=== PATIENT | male | born 1995 | race Caucasian/White ===

== ENCOUNTER 2016-08-01 | Emergency (ER) | payer BC, MEDICAID | END 2016-08-01 16:50 | disposition home or self-care (01) ==

== ENCOUNTER 2016-11-24 12:09 | Emergency (ER) | payer BC, MEDICAID ==
[2016-11-24 12:50] LABS: BILIRUBIN,URINE NEGATIVE (NEGATIVE); UA w/ MICROSCOPIC CHARGE YES
[2016-11-24 13:06] LABS: BASOPHILS # (AUTO) 0.1 10^3/uL (0.0-0.1); BASOPHILS % (AUTO) 0.9 %; EOSINOPHILS # (AUTO) 0.2 10^3/uL (0.0-0.7); EOSINOPHILS % (AUTO) 2.1 %; HCT - HEMATOCRIT 39.7 % (42.0-52.0); HGB - HEMOGLOBIN 13.7 g/dL (14.0-18.0); LYMPHOCYTES # (AUTO) 3.4 10^3/uL (1.5-3.5); LYMPHOCYTES % (AUTO) 36.9 %; MEAN CORPUSCULAR HEMOGLOBIN 30.9 pg (27.0-31.0); MEAN CORPUSCULAR HGB CONC 34.5 g/dL (32.0-36.0); MEAN CORPUSCULAR VOLUME 89.8 fL (80.0-94.0); MEAN PLATELET VOLUME 8.8 fL (7.4-11.4); MONOCYTES # (AUTO) 1.2 10^3/uL (0.0-1.0); NEUTROPHILS # (AUTO) 4.3 10^3/uL (1.5-6.6); NEUTROPHILS % (AUTO) 47.1 %; RED BLOOD COUNT 4.42 10^6/uL (4.70-6.10); RED CELL DISTRIBUTION WIDTH 12.8 % (12.0-15.0); UNCORRECTED WHITE BLOOD COUNT 9.2 x10^3/uL; WHITE BLOOD COUNT 9.2 x10^3/uL (4.8-10.8)
[2016-11-24 13:09] LABS: WBC,URINE 0-3 /HPF (0-3)
[2016-11-24 13:10] LABS: UR CULTURE IF IND NOT INDICATED
[2016-11-24 13:22] LABS: ALBUMIN/GLOBULIN RATIO 1.8 (1.0-2.2); BILIRUBIN,TOTAL 1.5 mg/dL (0.2-1.0); BUN - BLOOD UREA NITROGEN 26 mg/dL (6-20); CARBON DIOXIDE - CO2 22 mmol/L (21-32); CHLORIDE 101 mmol/L (101-111); CREATININE 0.9 mg/dL (0.6-1.2); GFR - MDRD 107 (>89); GLUCOSE 76 mg/dL (70-100); LIPASE 17 U/L (22-51); POTASSIUM 4.1 mmol/L (3.5-5.0); SALICYLATE < 6.0 mg/dL; SODIUM 137 mmol/L (135-145); TOTAL PROTEIN 7.8 g/dL (6.7-8.2)
[2016-11-24 13:33] LABS: ACETAMINOPHEN < 10 ug/mL (10-30)
--- NOTE | 2016-11-24 14:00 | ED Physician Documentation ---
PD HPI MHE - Stated complaint Stated Complaint: LT WRIST LAC - Chief complaint Chief Complaint: Laceration - History obtained from History obtained from: Patient, Friend - History of Present Illness Primary symptom: Suicidal ideation, Self harm - cut Timing - onset: Today Pain level max: 3 Pain level now: 1 Contributing factors: Substance abuse - drugs Recently seen: Not recently seen - Additional information Additional information: Patient is a 21 yo M with a history of Hep C who has been using meth for the past several days. States felt suicidal today and cut his L wrist. States history of bipolar, but has not been taking his medications. Patient currently denies feeling suicidal. He states that this was a dumb decision. He states that he is interested in going to rehab. Review of Systems Constitutional: denies: Fever Musculoskeletal: denies: Neck pain, Back pain Neurologic: denies: Focal weakness, Numbness Psychiatric: denies: Homicidal, Hallucinations, Delusions, Anxiety PD PAST MEDICAL HISTORY - Past Medical History Past Medical History: Yes Endocrine/Autoimmune: None Psych: Depression, Bipolar disorder, ADD/ADHD - Past Surgical History Past Surgical History: Yes Ortho: ACL reconstruction - Present Medications Home Medications: Ambulatory Orders Medication Instructions Recorded Confirmed Quetiapine Fumarate [Seroquel] 100 mg ORAL DAILY 09/13/14 08/01/16 Gabapentin 600 mg PO TID 08/01/16 08/01/16 [place] 900 mg PO DAILY 08/01/16 08/01/16 - Allergies Allergies/Adverse Reactions: Allergies Allergy/AdvReac Type Severity Reaction Status Date / Time ssri inhibitors AdvReac Unknown Uncoded 09/13/14 16:09 - Social History Does the pt smoke?: Yes Smoking Status: Current every day smoker Does the pt drink ETOH?: No Does the pt have substance abuse?: Yes Substance Use and Type: Meth - Immunizations Immunizations are current?: No Immunizations: TDAP >10years/unknown PD ED PE NORMAL - Vitals Vital signs reviewed: Yes - General General: Alert and oriented X 3, No acute distress - HEENT HEENT: Moist mucous membranes - Neck Neck: Supple, no meningeal sign - Cardiac Cardiac: RRR - Respiratory Respiratory: No respiratory distress, Clear bilaterally - Abdomen Abdomen: Soft, Non tender, Non distended - Derm Derm: Warm and dry - Extremities Extremities: Other (Volar aspect of the left wrist has a 3 cm, linear laceration that is subcutaneous. Neurovascularly intact. Patient is right- handed.No active bleeding.) - Neuro Neuro: Alert and oriented X 3 - Psych Psych: Normal mood, Normal affect Results - Vitals Vitals: Oxygen O2 Source Room air - Labs Labs: Laboratory Tests 11/24/16 11/24/16 11/24/16 12:39 12:58 12:58 WBC 9.2 RBC 4.42 L Hgb 13.7 L Hct 39.7 L MCV 89.8 MCH 30.9 MCHC 34.5 RDW 12.8 Plt Count 287 MPV 8.8 Neut # 4.3 Lymph # 3.4 [place] # 1.2 H Eos # 0.2 Baso # 0.1 Absolute Nucleated RBC 0.00 Nucleated RBCs 0.0 Sodium 137 Potassium 4.1 Chloride 101 Carbon Dioxide 22 Anion Gap 14.0 H BUN 26 H Creatinine 0.9 Estimated GFR (MDRD) 107 Glucose 76 Calcium 9.0 Total Bilirubin 1.5 H AST 317 H ALT 102 H Alkaline Phosphatase 68 Total Protein 7.8 Albumin 5.0 Globulin 2.8 Albumin/Globulin Ratio 1.8 Lipase 17 L Urine Color YELLOW Urine Clarity CLEAR Urine pH 6.0 Ur Specific [place] >=1.030 H Urine Protein 30 H Urine Glucose (UA) NEGATIVE Urine Ketones 15 H Urine Occult Blood NEGATIVE Urine Nitrite NEGATIVE Urine Bilirubin NEGATIVE Urine Urobilinogen 0.2 (NORMAL) Ur Leukocyte Esterase NEGATIVE Urine RBC 0-5 Urine WBC 0-3 Ur Squamous Epith Cells NONE SEEN Urine Bacteria Rare Urine Mucus Few Strands Ur Microscopic Review INDICATED Urine Culture Comments NOT INDICATED Salicylates < 6.0 Urine Opiates Screen NEGATIVE Ur Oxycodone Screen NEGATIVE Urine Methadone Screen NEGATIVE Ur Propoxyphene Screen NEGATIVE Acetaminophen < 10 L Ur Barbiturates Screen NEGATIVE Ur Tricyclics Screen NEGATIVE Ur Phencyclidine Scrn NEGATIVE Ur Amphetamine Screen POSITIVE H U Methamphetamines Scrn POSITIVE H U Benzodiazepines Scrn POSITIVE H Urine Cocaine Screen NEGATIVE U Cannabinoids Screen POSITIVE H Ethyl Alcohol < 5.0 Procedures - Laceration (location) Left wrist Length in cm: 3 Wound type: Linear, Superficial, Clean Neurovascular status: Sensory intact, Motor intact, Vascular intact Tendon involvement: Tendon intact Wound Preparation: Irrigated copiously NS (250ml), Wound explored, To the base. No: FB identified, FB removed Skin layer closure: Dermabond, Steri strips Other: Patient tolerated well, No complications, Neurovascular intact, Dressing applied, Tetanus UTD Complexity: Simple PD MEDICAL DECISION MAKING - ED course Complexity details: reviewed results, re-evaluated patient, considered differential, d/w patient, d/w family, d/w school plant consultant ED course: Patient is a 21-year-old male who presents to the emergency department after using methamphetamine for the past several days. During his methamphetamine intoxication, he cut his left wrist. This is superficial. Repaired in the emergency department. Tetanus is up-to-date. Patient is right-handed. Patient currently denies any suicidal ideation. We did discuss rehab and social work was consulted for both rehab and mental health evaluation. Mother is comfortable taking him home. They will return if he worsens. Warnings of infection and instructions on wound care given at bedside. Also counseled on how to minimize scarring. Patient and family counseled regarding signs and symptoms for which I believe and urgent re-evaluation would be necessary. Patient with good understanding of and agreement to plan and is comfortable going home at this time This document was made in part using voice recognition software. While efforts are made to proofread this document, sound alike and grammatical errors may occur. Departure - Departure Disposition: 01 Home, Self Care Clinical Impression: Laceration, Depressive disorder, Methamphetamine abuse Condition: Good Instructions: ED Laceration Ext Sutr Stap Tape, ED Drug Abuse General Follow-Up: your,doctor in 3 days for wound check [Other] Comments: Keep the wound clean and dry. You would benefit from rehab for your ongoing drug use issues. Discharge Date/Time: 11/24/16 15:52
[2016-11-24 15:49] VITALS: BP 124/68
== END 2016-11-24 15:52 | disposition home or self-care (01) ==
LOC: ED 12:09
DX: S61.512A Laceration without foreign body of left wrist, initial encounter (principal); X78.9XXA Intentional self-harm by unspecified sharp object, initial encounter; F15.10 Other stimulant abuse, uncomplicated; F31.9 Bipolar disorder, unspecified; T43.596A Underdosing of other antipsychotics and neuroleptics, initial encounter; Z91.128 Patient's intentional underdosing of medication regimen for other reason; B19.20 Unspecified viral hepatitis C without hepatic coma; F17.200 Nicotine dependence, unspecified, uncomplicated
CPT/HCPCS: 12002; 36415; 80053; 80306; 80307; 80320; 80329; 81001; 81003; 83690; 85025; 87086; 99283

== ENCOUNTER 2016-12-03 12:27 | Outpatient (CLI) | payer BC, MEDICAID | END 2016-12-03 12:28 | disposition EMS.NT | DX: Z03.89 Encounter for observation for other suspected diseases and conditions ruled out (principal) ==

== ENCOUNTER 2016-12-09 09:29 | Outpatient (CLI) | payer BC, MEDICAID | END 2016-12-09 09:30 | disposition critical access hospital (66) | LOC: EMS 09:29 | PROVIDERS: ATTEND Surgery | DX: S41.142A Puncture wound with foreign body of left upper arm, initial encounter (principal); R41.82 Altered mental status, unspecified; Y35.093A Legal intervention involving other firearm discharge, suspect injured, initial encounter; Y92.414 Local residential or business street as the place of occurrence of the external cause | CPT/HCPCS: A0425; A0433 ==

== ENCOUNTER 2016-12-09 09:40 | Emergency (ER) | payer BC, MEDICAID ==
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
[2016-12-09] MEDS ORDERED: PROPOFOL 1000 MG/100 ML 100 ML IV ONE (10:04)
[2016-12-09] MEDS ORDERED: MIDAZOLAM 2 MG/2 ML VIAL IVP STA (10:06)
[2016-12-09] MEDS ORDERED: PROPOFOL 1000 MG/100 ML 100 ML IV STA (10:07)
[2016-12-09 10:11] LABS: BASOPHILS # (AUTO) 0.1 10^3/uL (0.0-0.1); BASOPHILS % (AUTO) 0.4 %; EOSINOPHILS % (AUTO) 0.3 %; HCT - HEMATOCRIT 34.5 % (42.0-52.0); HGB - HEMOGLOBIN 11.9 g/dL (14.0-18.0); LYMPHOCYTES # (AUTO) 2.3 10^3/uL (1.5-3.5); LYMPHOCYTES % (AUTO) 12.5 %; MEAN CORPUSCULAR HEMOGLOBIN 31.1 pg (27.0-31.0); MEAN CORPUSCULAR HGB CONC 34.5 g/dL (32.0-36.0); MEAN CORPUSCULAR VOLUME 90.3 fL (80.0-94.0); MEAN PLATELET VOLUME 8.5 fL (7.4-11.4); MONOCYTES # (AUTO) 1.4 10^3/uL (0.0-1.0); MONOCYTES % (AUTO) 7.7 %; NEUTROPHILS # (AUTO) 14.8 10^3/uL (1.5-6.6); NEUTROPHILS % (AUTO) 79.1 %; RED BLOOD COUNT 3.82 10^6/uL (4.70-6.10); RED CELL DISTRIBUTION WIDTH 12.9 % (12.0-15.0); UNCORRECTED WHITE BLOOD COUNT 18.7 x10^3/uL; WHITE BLOOD COUNT 18.7 x10^3/uL (4.8-10.8)
[2016-12-09 10:24] LABS: ALBUMIN/GLOBULIN RATIO 1.4 (1.0-2.2); BILIRUBIN,TOTAL 0.7 mg/dL (0.2-1.0); BUN - BLOOD UREA NITROGEN 13 mg/dL (6-20); CALCIUM 8.8 mg/dL (8.5-10.3); CARBON DIOXIDE - CO2 20 mmol/L (21-32); CHLORIDE 105 mmol/L (101-111); CREATININE 0.9 mg/dL (0.6-1.2); GFR - MDRD 102 (>89); GLUCOSE 168 mg/dL (70-100); LIPASE 13 U/L (22-51); SODIUM 137 mmol/L (135-145); TOTAL PROTEIN 6.9 g/dL (6.7-8.2)
[2016-12-09 10:44] VITALS: BP 109/72
[2016-12-09 10:44] LABS: ABG ANALYSIS TIME 1040; ABG HCO3 20.3 mmol/L (22.0-26.0); ABG PCO2 29 mmHg (34-45); ABG PH 7.45 (7.35-7.45)
[2016-12-09 10:45] LABS: ABG MODE OF VENTILATION SIMV; ABG O2 DEVICE VENTILATOR; ABG OXYGEN SATURATION 100 % (94-98); ABG SITE OF DRAW RIGHT RADIAL; ALLEN TEST POSITIVE
[2016-12-09 10:46] LABS: ABG PEAK END EXPIRATORY PRESSU 5 cmH2O; ABG PRESSURE SUPPORT VENT 10 cmH2O; ABG RESPIRATORY RATE 14 b/min
[2016-12-09 10:47] LABS: ABG PO2 180 mmHg (80-100)
[2016-12-09 11:00] LABS: BILIRUBIN,URINE NEGATIVE (NEGATIVE); UA w/ MICROSCOPIC CHARGE YES
--- NOTE | 2016-12-09 11:00 | XRAY Preliminary Report ---
Exam: XR Humerus LT IMPRESSION: 1. Single view of the left humerus complicated by presence of shrapnel and soft tissue gas. No fractu re identified in the lateral projection. [facility] SITE ID: [id number]
--- NOTE | 2016-12-09 11:00 | XRAY Preliminary Report ---
Exam: XR Chest 1 View IMPRESSION: Negative portable chest with endotracheal tube in place. [facility] SITE ID: [id number]
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
[2016-12-09 11:04] LABS: UR CULTURE IF IND NOT INDICATED; WBC,URINE 0-3 /HPF (0-3)
[2016-12-09] MEDS ORDERED: SODIUM CHLORIDE INHALATION 3 ML NEB ONE (11:08)
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
== END 2016-12-09 11:01 | disposition short-term general hospital (02) ==
LOC: EDBD → ED 09:40 → MERGE 09:40 → ED 11:01
DX: S41.102A Unspecified open wound of left upper arm, initial encounter (principal); Y35.0 Legal intervention involving firearm discharge; Y92.830 Public park as the place of occurrence of the external cause; F15.10 Other stimulant abuse, uncomplicated
CPT/HCPCS: 36415; 36600; 71010; 73060; 80053; 80306; 80320; 81001; 82803; 83690; 85025; 86850; 86900; 86901; 94770; 99284; 99285; G0390; 81003; 87086